=== PATIENT | female | born 1940 | race Caucasian/White ===

== ENCOUNTER 2017-11-05 13:29 | Inpatient (IN) | payer MEDICARE ==
[2017-11-05] VITALS (7 sets, daily range): BP systolic 104–156; BP diastolic 51–93; PULSE 77–128; RESP 17–19; TEMP 98.2–98.9; O2SAT 96–97
[~2017-11-05] VITALS: Ht 172.7 cm; Wt 100.3 kg
[~2017-11-05 13:29] MED LIST: ALBU.5I INH; ATEN1TAB74 PO; LEVO.15 PO; LORTA5 PO; METF-324 PO; TRAZ50TA4 PO; ZYRT10TA12 PO
[2017-11-05] MEDS ORDERED: SODIUM CHLOR 0.9% 1000 ML INJ 1,000 ML IV ONE ×2 (14:15→16:45)
--- NOTE | 2017-11-05 14:23 | PD ---
HPI Chief Complaint: Found on floor Time Seen by Provider: 14:08 Travel History International Travel<30 days: No Contact w/Intl Traveler<30days: No History of Present Illness HPI 77yo F brought in by [facility] after being found facedown on floor at home for unknown amount of time. Pt said she had not been feeling well but does not remember when she fell or why she fell. Pt has pressure ulcers on bilateral knee and skin break down in right chest and groin as well as right forehead after being face down for probably days. Said she had lower back pain prior to falling. Denies any fever, chest pain, n/v, abdominal pain, focal weakness or numbness. Feels a little sob. PFSH Past Medical History Arthritis: Yes Asthma: Yes Blood Disorders: No Cancer: No Cardiovascular Problems: Yes Diabetes: Yes Endocrine: Yes Genitourinary: No Hypertension: Yes Immune Disorder: No Musculoskeletal: Yes (RIGHT HIP TENDON TEAR) Neurologic: No Psychiatric: No Reproductive: No Respiratory: Yes Thyroid Disease: Yes Past Surgical History Abdominal Surgery: Yes (CHOLECYSTECTOMY) Cholecystectomy: Yes Gynecologic Surgery: Yes (ATIF) Joint Replacement: Yes (YUNG. KNEES) Oral Surgery: Yes (T & A) Social History Alcohol Use: Yes (OCCAS) Tobacco Use: No Substance Use: No Allergies-Medications (Allergen,Severity, Reaction): Coded Allergies: No Known Allergies (Verified Allergy, Unknown, 11/05/17) Reported Meds & Prescriptions Reported Meds & Active Scripts Active Reported Tizanidine (Tizanidine HCl) 4 Mg Tab 4 Mg PO TID Memantine 5 Mg Tab 5 Mg PO BID [place] Thyroid (Thyroid) 90 Mg Tab 90 Mg PO DAILY Trazodone (Trazodone HCl) 50 Mg Tab 50 Mg PO HS Atenolol 50 Mg Tab 50 Mg PO BID Rosuvastatin (Rosuvastatin Calcium) 10 Mg Tab 10 Mg PO HS Acetaminophen-Codeine 300-15 mg Tab 1 Tab PO Q6H PRN Review of Systems Except as stated in HPI: all other systems reviewed are Neg Physical Exam Narrative GENERAL: 77yo F in moderate distress. SKIN: +Erythema under right breast, right abdomen and groin. HEAD: Erythema in right forehead and maxilla. EYES: Pupils equal and round at 3mm bilaterally. ENT: No nasal bleeding or discharge. Mucous membranes pink and moist. NECK: Trachea midline. No JVD. CARDIOVASCULAR: Regular rate and rhythm. No murmur appreciated. RESPIRATORY: No accessory muscle use. Clear to auscultation. Breath sounds equal bilaterally. GASTROINTESTINAL: Abdomen soft, non-tender, nondistended. No rebound tenderness or guarding. MUSCULOSKELETAL: Bilateral knees: +ulcer left > right. Distal pulses intact. NEUROLOGICAL: Awake and alert. No obvious cranial nerve deficits. Decreased muscle strength in bilateral lower extremity. Sensation intact. Normal speech. PSYCHIATRIC: Appropriate mood and affect; insight and judgment normal. Data Data Last Documented VS Vital Signs Date Time Temp Pulse Resp B/P (MAP) Pulse Ox O2 Delivery O2 Flow Rate FiO2 11/05/17 16:58 125 17 156/78 (104) 97 Room Air 11/05/17 13:35 98.2 Orders Orders Electrocardiogram (11/05/17 ) Complete Blood Count With Diff (11/05/17 14:08) Comprehensive Metabolic Panel (11/05/17 14:08) Prothrombin Time / Inr (Pt) (11/05/17 14:08) Act Partial Throm Time (Ptt) (11/05/17 14:08) Creatine Kinase (Cpk) (11/05/17 14:08) Troponin I (11/05/17 14:08) Urinalysis - C+S If Indicated (11/05/17 14:08) Chest, Single Ap (11/05/17 ) Pelvis, Ap Only (Routine) (11/05/17 ) Ct Brain W/O Iv Contrast(Rout) (11/05/17 ) Ct Cerv Spine W/O Contrast (11/05/17 ) Ct Facial Bones W/O Iv Cont (11/05/17 ) Ct Lumb Spine W/O Contrast (11/05/17 ) Magnesium (Mg) (11/05/17 14:08) Lactic Acid Sepsis Protocol (11/05/17 14:08) Sodium Chlor 0.9% 1000 Ml Inj (Ns 1000 M (11/05/17 14:15) CKMB (11/05/17 14:15) CKMB% (11/05/17 14:15) Sodium Chlor 0.9% 1000 Ml Inj (Ns 1000 M (11/05/17 16:45) Diltiazem Inj (Cardizem Inj) (11/05/17 17:45) Admit Order (Ed Use Only) (11/05/17 17:39) Labs Laboratory Tests Test 11/05/17 14:15 11/05/17 17:00 White Blood Count 18.0 TH/MM3 Red Blood Count 5.00 MIL/MM3 Hemoglobin 15.0 GM/DL Hematocrit 45.0 % Mean Corpuscular Volume 89.9 FL Mean Corpuscular Hemoglobin 30.0 PG Mean Corpuscular Hemoglobin Concent 33.4 % Red Cell Distribution Width 13.8 % Platelet Count 321 TH/MM3 Mean Platelet Volume 8.3 FL Neutrophils (%) (Auto) 84.0 % Lymphocytes (%) (Auto) 4.9 % Monocytes (%) (Auto) 10.8 % Eosinophils (%) (Auto) 0.0 % Basophils (%) (Auto) 0.3 % Neutrophils # (Auto) 15.1 TH/MM3 Lymphocytes # (Auto) 0.9 TH/MM3 Monocytes # (Auto) 1.9 TH/MM3 Eosinophils # (Auto) 0.0 TH/MM3 Basophils # (Auto) 0.1 TH/MM3 CBC Comment DIFF FINAL Differential Comment Prothrombin Time 11.0 SEC Prothromb Time International Ratio 1.1 RATIO Activated Partial Thromboplast Time 24.1 SEC Blood Urea Nitrogen 21 MG/DL Creatinine 1.06 MG/DL Random Glucose 131 MG/DL Total Protein 7.0 GM/DL Albumin 3.3 GM/DL Calcium Level 8.6 MG/DL Magnesium Level 2.0 MG/DL Alkaline Phosphatase 117 U/L Aspartate Amino Transf (AST/SGOT) 35 U/L Alanine Aminotransferase (ALT/SGPT) 22 U/L Total Bilirubin 0.8 MG/DL Sodium Level 143 MEQ/L Potassium Level 4.4 MEQ/L Chloride Level 107 MEQ/L Carbon Dioxide Level 19.0 MEQ/L Anion Gap 17 MEQ/L Estimat Glomerular Filtration Rate 51 ML/MIN Lactic Acid Level 2.4 mmol/L 1.6 mmol/L Total Creatine Kinase 606 U/L Creatine Kinase MB 3.6 NG/ML Creatine Kinase MB % 0.6 % Troponin I 0.03 NG/ML [facility] Medical Decision Making Medical Screen Exam Complete: Yes Emergency Medical Condition: Yes Differential Diagnosis Failure to thrive vs. CPK vs. dehydration vs. electrolyte abnormality vs. UTI Narrative Course 77yo F was found facedown by friend for unknown amount of time. Pt initially tachycardic in the 120s and given NS IVF x2. EKG has poor baseline. Pt reevaluated at bedside and HR is now in the 130s. Looks irregular, ordered cardizem 20mg IV which did decrease HR to 80s. Labs reviewed, leukocytosis at 18. H/H normal. Lactic acid elevated at 2.4. CPK elevated at 606. CO2 low at 19. CT cspine negative. CXR negative. CT brain negative. CT LS negative. CT MF negative. Xray pelvis negative. Discussed with Dr. Verdugo and accepted to his service. Critical Care Narrative Aggregate critical care time was 40 minutes. Time to perform other separately billable procedures was not included in the critical care time. My time did not include minutes spent treating any other patients simultaneously or on activities that did not directly contribute to the patient's treatment. The services I provided to this patient were to treat and/or prevent clinically significant deterioration that could result in: cardiovascular collapse or . I provided critical care services requiring my management, as noted below: Chart data review, documentation time, medication orders and management, vital sign assessments/reviewing monitor data, ordering and reviewing lab tests, ordering and interpreting/reviewing x-rays and diagnostic studies, care of the patient and discussion of the patient with the admitting physicians. Diagnosis Primary Impression: Lactic acidosis Additional Impression: Rhabdomyolysis Qualified Codes: T79.6XXA - Traumatic ischemia of muscle, initial encounter Admitting Information Admitting Physician Requests: Aarti Almanzar DO Nov 05, 2017 14:23
[2017-11-05 14:31] LABS: AUTOMATED NEUTROPHIL # 15.1 TH/MM3 (1.8-7.7); BASOPHIL # 0.1 TH/MM3 (0-0.2); BASOPHIL % 0.3 % (0.0-2.0); HEMO FLAGS DIFF FINAL; LYMPH % 4.9 % (9.0-44.0); LYMPHOCYTE # 0.9 TH/MM3 (1.0-4.8); MEAN CELL VOLUME 89.9 FL (80.0-100.0); MEAN CORPUSCULAR HGB CONC 33.4 % (32.0-36.0); MONO % 10.8 % (0.0-8.0); PLATELET COUNT 321 TH/MM3 (150-450); RED CELL DISTRIBUTION WIDTH 13.8 % (11.6-17.2)
[2017-11-05 14:42] LABS: APTT (PATIENT) 24.1 SEC (24.3-30.1); INTERNATIONAL NORMALIZED RATIO 1.1 RATIO
[2017-11-05 14:45] LABS: ALT (GPT) 22 U/L (10-53); ANION GAP 17 MEQ/L (5-15); AST (GOT) 35 U/L (15-37); BLOOD UREA NITROGEN 21 MG/DL (7-18); CHLORIDE 107 MEQ/L (98-107); GLOMERULAR FILTRATION RATE 51 ML/MIN (>89); POTASSIUM 4.4 MEQ/L (3.5-5.1); SODIUM (NA) 143 MEQ/L (136-145)
[2017-11-05 14:48] LABS: ALKALINE PHOSPHATASE 117 U/L (45-117); CREATINE KINASE 606 U/L (26-192); TOTAL BILIRUBIN ADULT 0.8 MG/DL (0.2-1.0)
--- NOTE | 2017-11-05 14:48 | RADRPT ---
EXAM DATE/TIME: 11/05/2017 14:34 [facility] COMPARISON: No previous studies available for comparison. INDICATIONS : Short of breath. MEDICAL HISTORY : None. SURGICAL HISTORY : None. ENCOUNTER: Initial ACUITY: 1 day PAIN SCORE: 10 LOCATION: Bilateral chest FINDINGS: A single view of the chest demonstrates the lungs to be symmetrically aerated without evidence of mas s, infiltrate or effusion. The cardiomediastinal contours are unremarkable. Osseous structures are intact. CONCLUSION: No acute disease. Jonas Sterling MD on November 05, 2017 at 14:45 Board Certified Radiologist. This report was verified electronically.
--- NOTE | 2017-11-05 14:49 | RADRPT ---
EXAM DATE/TIME: 11/05/2017 14:36 [facility] COMPARISON: No previous studies available for comparison. INDICATIONS : Right posterior hip pain. MEDICAL HISTORY : None. SURGICAL HISTORY : None. ENCOUNTER: Initial ACUITY: 1 day PAIN SCORE: 5/10 LOCATION: Right posterior hip FINDINGS: A single frontal view of the pelvis demonstrates no evidence of fracture. The bony pelvic ring is in tact. Bony mineralization is normal. The soft tissues are intact. CONCLUSION: No acute fracture. Jonas Sterling MD on November 05, 2017 at 14:47 Board Certified Radiologist. This report was verified electronically.
[2017-11-05 15:00] LABS: CKMB 3.6 NG/ML (0.5-3.6)
--- NOTE | 2017-11-05 15:13 | RADRPT ---
EXAM DATE/TIME: 11/05/2017 14:34 [facility] COMPARISON: No previous studies available for comparison. INDICATIONS : Trauam, patient fell and hit head today. Head, neck and lumbar pain. RADIATION DOSE: 56.35 CTDIvol (mGy) MEDICAL HISTORY : Hypertension. Diabetes mellitus type 1. SURGICAL HISTORY : Cholecystectomy. ENCOUNTER: Initial ACUITY: 1 day PAIN SCALE: 10/10 LOCATION: cranial TECHNIQUE: Multiple contiguous axial images were obtained of the head. Using automated exposure control and adj ustment of the mA and/or kV according to patient size, radiation dose was kept as low as reasonably a chievable to obtain optimal diagnostic quality images. DICOM format image data is available electro nically for review and comparison. FINDINGS: CEREBRUM: There is low attenuation throughout the white matter. Cerebral atrophy The ventricles are normal for age. No evidence of midline shift, mass lesion, hemorrhage or acute infarction. No extra-axial flui d collections are seen. POSTERIOR FOSSA: The cerebellum and brainstem are intact. The 4th ventricle is midline. The cerebellopontine angle i s unremarkable. EXTRACRANIAL: The visualized portion of the orbits is intact. SKULL: The calvaria is intact. No evidence of skull fracture. CONCLUSION: 1. Cerebral atrophy and chronic ischemic small vessel arthropathy. 2. No acute intracranial abnormality. Jonas Sterling MD on November 05, 2017 at 15:10 Board Certified Radiologist. This report was verified electronically.
--- NOTE | 2017-11-05 15:14 | RADRPT ---
EXAM DATE/TIME: 11/05/2017 14:40 [facility] COMPARISON: No previous studies available for comparison. INDICATIONS : Trauam, patient fell and hit head today. Head, neck and lumbar pain. RADIATION DOSE: 25.06 CTDIvol (mGy) MEDICAL HISTORY : Hypertension. Diabetes mellitus type 1. SURGICAL HISTORY : Cholecystectomy. ENCOUNTER: Initial ACUITY: 1 day PAIN SCALE: 10/10 LOCATION: cervical spine TECHNIQUE: Volumetric scanning of the cervical spine was performed. Multiplanar reconstructions in the sagittal, coronal and oblique axial planes were performed. Using automated exposure control and adjustment o f the mA and/or kV according to patient size, radiation dose was kept as low as reasonably achievable to obtain optimal diagnostic quality images. DICOM format image data is available electronically f or review and comparison. FINDINGS: VERTEBRAE: Normal vertebral body height. ALIGNMENT: No evidence of subluxation. C2-C3: The bony spinal canal is normal in size. No evidence of disc bulge or herniation. The neural forami na are bilaterally patent. C3-C4: The bony spinal canal is normal in size. No evidence of disc bulge or herniation. The neural forami na are bilaterally patent. C4-C5: The bony spinal canal is normal in size. No evidence of disc bulge or herniation. The neural forami na are bilaterally patent. C5-C6: The bony spinal canal is normal in size. No evidence of disc bulge or herniation. The neural forami na are bilaterally patent. C6-C7: The bony spinal canal is normal in size. No evidence of disc bulge or herniation. The neural forami na are bilaterally patent. C7-T1: The bony spinal canal is normal in size. No evidence of disc bulge or herniation. The neural forami na are bilaterally patent. CONCLUSION: No fracture or subluxation. Jonas Sterling MD on November 05, 2017 at 15:12 Board Certified Radiologist. This report was verified electronically.
[2017-11-05] MEDS ORDERED: ARMO90TA PO (15:41)
[2017-11-05] MEDS ORDERED: TRAZ50TA12 PO (15:41)
[2017-11-05] MEDS ORDERED: ATEN50TA PO (15:41)
[2017-11-05] MEDS ORDERED: TIZA4TAB PO (15:41)
[2017-11-05] MEDS ORDERED: ACET300T49 PO (15:41)
[2017-11-05] MEDS ORDERED: MEMA1TAB PO (15:41)
[2017-11-05] MEDS ORDERED: ROSU1TAB6 PO (15:41)
--- NOTE | 2017-11-05 15:45 | RADRPT ---
EXAM DATE/TIME: 11/05/2017 14:44 [facility] COMPARISON: No previous studies available for comparison. INDICATIONS : Trauam, patient fell and hit head today. Head, neck and lumbar pain. RADIATION DOSE: 43.46 CTDIvol (mGy) MEDICAL HISTORY : Diabetes mellitus type 1. Hypertension. SURGICAL HISTORY : Cholecystectomy. ENCOUNTER: Initial ACUITY: 1 day PAIN SCALE: 10/10 LOCATION: lumbar spine TECHNIQUE: Volumetric scanning of the lumbar spine was performed. Multiplanar reconstructions in the sagittal, coronal and oblique axial planes were performed. Using automated exposure control and adjustment of the mA and/or kV according to patient size, radiation dose was kept as low as reasonably achievable t o obtain optimal diagnostic quality images. DICOM format image data is available electronically for review and comparison. FINDINGS: VERTEBRAE: Normal vertebral body height. No fracture. Multilevel degenerative changes including L2-3, L3-4, L4-5 and L5-S1 levels. ALIGNMENT: No evidence of subluxation. Scoliosis. T12-L1: The thecal sac has a normal diameter. No evidence of disc bulge or protrusion. The neural foramina are patent bilaterally. L1-L2: The thecal sac has a normal diameter. No evidence of disc bulge or protrusion. The neural foramina are patent bilaterally. L2-L3: The thecal sac has a normal diameter. No evidence of disc bulge or protrusion. The neural foramina are patent bilaterally. L3-L4: Mild broad-based disc bulge abuts ventral thecal sac without canal stenosis. The neural foramina are patent bilaterally. L4-L5: Mild broad-based disc bulge abuts ventral thecal sac without canal stenosis.The neural foramina are p atent bilaterally. L5-S1: Mild broad-based disc bulge abuts ventral thecal sac without canal stenosis. The neural foramina are patent bilaterally. CONCLUSION: 1. No fracture or subluxation. 2. Scoliosis and degenerative changes. Jonas Sterling MD on November 05, 2017 at 15:41 Board Certified Radiologist. This report was verified electronically.
--- NOTE | 2017-11-05 16:16 | RADRPT ---
EXAM DATE/TIME: 11/05/2017 14:41 [facility] COMPARISON: No previous studies available for comparison. INDICATIONS : Trauam, patient fell and hit head today. Head, neck and lumbar pain. RADIATION DOSE: 26.35 CTDIvol (mGy) MEDICAL HISTORY : Hypertension. Diabetes mellitus type 1. SURGICAL HISTORY : Cholecystectomy. ENCOUNTER: Initial ACUITY: 1 day PAIN SCORE: 10/10 LOCATION: facial bones TECHNIQUE: Volumetric scanning of the facial bones was performed. Using automated exposure control and adjustme nt of the mA and/or kV according to patient size, radiation dose was kept as low as reasonably achiev able to obtain optimal diagnostic quality images. DICOM format image data is available electronicall y for review and comparison. FINDINGS: ORBITS: The orbital and infraorbital osseous structures are intact. The retroconal structures have a normal configuration. No radiopaque foreign bodies are seen. NASAL BONE: The nasal bone and maxillary spine are intact ZYGOMATIC ARCHES: Symmetric without evidence of fracture. SINUSES: The maxillary, ethmoid and frontal sinuses are intact. No air-fluid levels seen. NASAL CAVITY: The nasal septum is intact and midline. The lacrimal ducts are intact. SOFT TISSUES: No radiopaque foreign bodies seen. No soft-tissue swelling is seen. INTRACRANIAL: No intracranial air seen. CRIBIFORM PLATE: Grossly intact. CONCLUSION: No acute disease. Tyrell Suazo MD on November 05, 2017 at 16:12 Board Certified Radiologist. This report was verified electronically.
[2017-11-05 16:26] LABS: LACTIC ACID GHOST NOT REPORTABLE
[2017-11-05] MEDS ORDERED: DILTIAZEM HCL 25 MG/5 ML VIAL IV ONE (17:45)
[2017-11-05] MEDS ORDERED: ACETAMINOPHEN/HYDROcodone 325 MG/5 MG TAB PO PRN (18:00)
[2017-11-05] MEDS ORDERED: MAGNESIUM HYDROXIDE SUSP 30 ML CUP PO PRN (18:00)
[2017-11-05] MEDS ORDERED: ONDANSETRON HCL 4 MG/2 ML VIAL IVP PRN (18:00)
[2017-11-05] MEDS ORDERED: SODIUM CHLORIDE 0.9% FLUSH 10 ML FLUSH IV FLUSH PRN (18:00)
[2017-11-05] MEDS ORDERED: NALOXONE HCL 0.4 MG/ML AMP IV PUSH PRN (18:00)
--- NOTE | 2017-11-05 18:11 | HHI.HP ---
[facility] Service [facility] Primary Care Physician No Primary Care Physician Admission Diagnosis Failure to thrive, fall Diagnoses: Travel History International Travel<30 Days: No Contact w/Intl Traveler <30 Da: No Traveled to Known Affected Are: No History of Present Illness Mrs. Harry is a 77-year-old female. She has Alzheimer's at baseline and history is not 100% clear because of this. She was found on the floor in the bathroom by her friend. It appears she had been having diarrhea at some point and fell and was unable to get up. She's been in this position for approximately 3-5 days. On workup in the ER no fractures are found. She does report severe right hip pain and has a bad hip there to begin with but no fracture is seen. Rhabdomyolysis is present. She also has lactic acidosis. She has bilateral knee wounds/ulcers. Pain is controlled when seen. Dehydration is present. No other complaints at this time. Presently she is feeling much weaker than baseline and does not feel she can walk at this time. Review of Systems Constitutional: DENIES: Fatigue, Chills, Change in appetite Eyes: DENIES: Blurred vision, Diplopia, Eye inflammation, Eye pain Respiratory: DENIES: Apneas, Cough, Snoring, Wheezing, Shortness of breath Cardiovascular: DENIES: Chest pain, Palpitations, Syncope Gastrointestinal: COMPLAINS OF: Diarrhea, DENIES: Abdominal pain, Black stools , Bloody stools Musculoskeletal: COMPLAINS OF: Joint pain, Muscle aches, Stiffness, DENIES: Joint Swelling Integumentary: DENIES: Abnormal pigmentation, Pruritus, Rash, Nail changes Hematologic/lymphatic: COMPLAINS OF: Bruising, DENIES: Lymphadenopathy Immunologic/allergic: DENIES: Eczema, Urticaria Neurologic: DENIES: Abnormal gait, Headache, Paresthesias Psychiatric: COMPLAINS OF: Confusion, DENIES: Anxiety, Hallucinations Past Family Social History Past Medical History Alzheimer's dementia Osteoarthritis Asthma Diabetes mellitus type 2 Hypertension Hypothyroidism Past Surgical History Cholecystectomy Tonsillectomy Hysterectomy Bilateral knee replacement surgeries Reported Medications Reported Meds & Active Scripts Active Reported Tizanidine (Tizanidine HCl) 4 Mg Tab 4 Mg PO TID Memantine 5 Mg Tab 5 Mg PO BID Fausto Thyroid (Thyroid) 90 Mg Tab 90 Mg PO DAILY Trazodone (Trazodone HCl) 50 Mg Tab 50 Mg PO HS Atenolol 50 Mg Tab 50 Mg PO BID Rosuvastatin (Rosuvastatin Calcium) 10 Mg Tab 10 Mg PO HS Acetaminophen-Codeine 300-15 mg Tab 1 Tab PO Q6H PRN Allergies: Coded Allergies: No Known Allergies (Verified , 08/18/15) Family History Myocardial infarction in father Liver cancer in mother Social History No history of smoking No history of illicit drug abuse Occasional alcohol use Physical Exam Vital Signs Vital Signs Date Time Temp Pulse Resp B/P (MAP) Pulse Ox O2 Delivery O2 Flow Rate FiO2 11/05/17 16:58 125 17 156/78 (104) 97 Room Air 11/05/17 16:00 118 17 145/74 (97) 97 Room Air 11/05/17 13:35 98.2 128 17 132/93 (106) 97 11/05/17 13:35 128 17 97 Room Air Physical Exam GENERAL: NAD, A&Ox3 HEAD: Normocephalic. NECK: Supple, trachea midline. No lymphadenopathy. EYES: No scleral icterus. No injection or drainage. CARDIOVASCULAR: Regular rate and rhythm without murmurs, gallops, or rubs. RESPIRATORY: Breath sounds equal bilaterally. No accessory muscle use. GASTROINTESTINAL: Abdomen soft, non-tender, nondistended. MUSCULOSKELETAL: No cyanosis, or edema. Tenderness with any range of motion of right leg referred to right hip. SKIN: Warm and dry. Bilateral knee ulcerations with bruising and discoloration. Left side is approximately 2-3 cm and right-sided is 1-2 cm. NEURO: No focal neurological deficitis. Laboratory Laboratory Tests Test 11/05/17 14:15 11/05/17 17:00 White Blood Count 18.0 Red Blood Count 5.00 Hemoglobin 15.0 Hematocrit 45.0 Mean Corpuscular Volume 89.9 Mean Corpuscular Hemoglobin 30.0 Mean Corpuscular Hemoglobin Concent 33.4 Red Cell Distribution Width 13.8 Platelet Count 321 Mean Platelet Volume 8.3 Neutrophils (%) (Auto) 84.0 Lymphocytes (%) (Auto) 4.9 Monocytes (%) (Auto) 10.8 Eosinophils (%) (Auto) 0.0 Basophils (%) (Auto) 0.3 Neutrophils # (Auto) 15.1 Lymphocytes # (Auto) 0.9 Monocytes # (Auto) 1.9 Eosinophils # (Auto) 0.0 Basophils # (Auto) 0.1 CBC Comment DIFF FINAL Differential Comment Prothrombin Time 11.0 Prothromb Time International Ratio 1.1 Activated Partial Thromboplast Time 24.1 Blood Urea Nitrogen 21 Creatinine 1.06 Random Glucose 131 Total Protein 7.0 Albumin 3.3 Calcium Level 8.6 Magnesium Level 2.0 Alkaline Phosphatase 117 Aspartate Amino Transf (AST/SGOT) 35 Alanine Aminotransferase (ALT/SGPT) 22 Total Bilirubin 0.8 Sodium Level 143 Potassium Level 4.4 Chloride Level 107 Carbon Dioxide Level 19.0 Anion Gap 17 Estimat Glomerular Filtration Rate 51 Lactic Acid Level 2.4 1.6 Total Creatine Kinase 606 Creatine Kinase MB 3.6 Creatine Kinase MB % 0.6 Troponin I 0.03 Result Diagram: 11/05/17 1415 11/05/17 1415 Caprini VTE Risk Assessment Caprini VTE Risk Assessment: Mod/High Risk (score >= 2) Caprini Risk Assessment Model Point Value = 1 Point Value = 2 Point Value = 3 Point Value = 5 Age 41-60 Minor surgery BMI > 25 kg/m2 Swollen legs Varicose veins or History of unexplained or recurrent spontaneous Oral contraceptives or hormone replacement Sepsis (< 1 month) Serious lung disease, including pneumonia (< 1 month) Abnormal pulmonary function Acute myocardial infarction Congestive heart failure (< 1 month) History of inflammatory bowel disease Medical patient at bed rest Age 61-74 Arthroscopic surgery Major open surgery (> 45 min) Laparoscopic surgery (> 45 min) Malignancy Confined to bed (> 72 hours) Immobilizing plaster cast Central venous access Age >= 75 History of VTE Family history of VTE Factor V Leiden Prothrombin [id number] Lupus anticoagulant Anticardiolipin antibodies Elevated serum homocysteine Heparin-induced thrombocytopenia Other congenital or acquired thrombophilia Stroke (< 1 month) Elective arthroplasty Hip, pelvis, or leg fracture Acute spinal cord injury (< 1 month) Prophylaxis Regimen Total Risk Factor Score Risk Level Prophylaxis Regimen 0-1 Low Early ambulation 2 Moderate Order ONE of the following: *Sequential Compression Device (SCD) *Heparin 5000 units SQ BID 3-4 Higher Order ONE of the following medications: *Heparin 5000 units SQ TID *Enoxaparin/Lovenox 40 mg SQ daily (WT < 150 kg, CrCl > 30 mL/min) *Enoxaparin/Lovenox 30 mg SQ daily (WT < 150 kg, CrCl > 10-29 mL/min) *Enoxaparin/Lovenox 30 mg SQ BID (WT < 150 kg, CrCl > 30 mL/min) AND/OR *Sequential Compression Device (SCD) 5 or more Highest Order ONE of the following medications: *Heparin 5000 units SQ TID (Preferred with Epidurals) *Enoxaparin/Lovenox 40 mg SQ daily (WT < 150 kg, CrCl > 30 mL/min) *Enoxaparin/Lovenox 30 mg SQ daily (WT < 150 kg, CrCl > 10-29 mL/min) *Enoxaparin/Lovenox 30 mg SQ BID (WT < 150 kg, CrCl > 30 mL/min) AND *Sequential Compression Device (SCD) Assessment and Plan Problem List: (1) Rhabdomyolysis ICD Code: M62.82 - Rhabdomyolysis (2) Dehydration ICD Code: E86.0 - Dehydration (3) Lactic acidosis ICD Code: E87.2 - Acidosis (4) Leukocytosis ICD Code: D72.829 - Elevated white blood cell count, unspecified Assessment and Plan Assessment and plan 77-year-old female admitted secondary to rhabdomyolysis with dehydration and weakness Rhabdomyolysis Dehydration Lactic acidosis Secondary to fall and prolonged time down on the floor IV hydration Follow CPK Monitor renal function Tachycardia May be partly related to dehydration May be from missed beta lan treatments Diltiazem provided the ER Follow on telemetry Rehydrate the patient Gen. weakness Fall Start physical therapy I anticipate this patient will need fci facility at discharge Alzheimer's dementia Continue baseline therapy Follow clinically Supportive care Bilateral knee ulcerations Open hematomas versus pressure ulcers Wound care nurse consulted Follow clinically History of asthma No exacerbation Follow clinically for now History of diabetes mellitus type 2 She is presently not on any treatment May be diet controlled Follow blood sugars for now Insulin sliding scale Hypertension Continue atenolol Hypothyroidism Continue thyroid supplement DVT prophylaxis Given recent trauma will provide SCDs for now Anticoagulation could be considered if patient remains clinically stable for 24- 48 hours Physician Certification 2 Midnight Certification Type: Admission for Inpatient Services Order for Inpatient Services The services are ordered in accordance with Medicare regulations or non- Medicare payer requirements, as applicable. In the case of services not specified as inpatient-only, they are appropriately provided as inpatient services in accordance with the 2-midnight benchmark. Estimated LOS (days): 4 days is the estimated time the patient will need to remain in the hospital, assuming treatment plan goals are met and no additional complications. Post-Hospital Plan: SNF Slim Verdugo MD Nov 05, 2017 18:11
[2017-11-05] MEDS: SODIUM CHLOR 0.9% 1000 ML INJ 1,000 ML IV SCH (18:31)
[2017-11-05] MEDS ORDERED: DEXTROSE 50% IN WATER 50 ML VIAL(D50) IV PUSH PRN (18:45)
[2017-11-05] MEDS ORDERED: GLUCAGON 1 MG/ML VIAL OTHER PRN (18:45)
[2017-11-05] MEDS: ACETAMINOPHEN/HYDROcodone 325 MG/7.5 MG TAB PO PRN (19:07)
[2017-11-05] MEDS: traZODone HCL 50 MG TAB PO SCH (20:21)
[2017-11-05] MEDS: ATENOLOL 50 MG TAB PO SCH (20:21)
[2017-11-05] MEDS: MEMANTINE HCL 5 MG TAB PO SCH (20:21)
[2017-11-05] MEDS: SODIUM CHLORIDE 0.9% FLUSH 10 ML FLUSH IV FLUSH SCH (20:23)
[2017-11-05 22:41] LABS: CKMB 4.4 NG/ML (0.5-3.6)
[2017-11-06 03:39] VITALS: BP 129/66; PULSE 65; RESP 19; TEMP 98.6; O2SAT 95
[2017-11-06] MEDS: SODIUM CHLOR 0.9% 1000 ML INJ 1,000 ML IV SCH ×3 (04:00→21:31)
[2017-11-06] MEDS: THYROID 30 MG TAB PO SCH ×2 (05:19→09:07)
[2017-11-06 05:58] LABS: AUTOMATED NEUTROPHIL # 7.4 TH/MM3 (1.8-7.7); BASOPHIL # 0.1 TH/MM3 (0-0.2); BASOPHIL % 0.5 % (0.0-2.0); EOSINOPHIL % 0.3 % (0.0-4.0); HEMATOCRIT 36.4 % (35.0-46.0); HEMO FLAGS DIFF FINAL; LYMPH % 13.7 % (9.0-44.0); LYMPHOCYTE # 1.4 TH/MM3 (1.0-4.8); MEAN CELL VOLUME 88.9 FL (80.0-100.0); MEAN CORPUSCULAR HEMOGLOBIN 30.6 PG (27.0-34.0); MEAN CORPUSCULAR HGB CONC 34.4 % (32.0-36.0); MONO % 11.8 % (0.0-8.0); NEUT % 73.7 % (16.0-70.0); PLATELET COUNT 233 TH/MM3 (150-450); RED BLOOD COUNT 4.09 MIL/MM3 (4.00-5.30); RED CELL DISTRIBUTION WIDTH 13.6 % (11.6-17.2)
[2017-11-06 06:46] LABS: CKMB 3.2 NG/ML (0.5-3.6)
[2017-11-06 08:00] VITALS: BP 103/50; PULSE 76; RESP 19; TEMP 98.9; O2SAT 95
[2017-11-06] MEDS: ATENOLOL 50 MG TAB PO SCH ×2 (09:00→20:13)
[2017-11-06] MEDS: SODIUM CHLORIDE 0.9% FLUSH 10 ML FLUSH IV FLUSH SCH ×2 (09:00→20:13)
[2017-11-06] MEDS: MEMANTINE HCL 5 MG TAB PO SCH ×2 (09:07→20:13)
[2017-11-06] MEDS: ACETAMINOPHEN/HYDROcodone 325 MG/7.5 MG TAB PO PRN (09:11)
[2017-11-06 12:00] VITALS: BP 97/55; PULSE 76; RESP 19; TEMP 98.4; O2SAT 94
--- NOTE | 2017-11-06 13:36 | EKG ---
Date Performed: 11/05/2017 Time Performed: 14:12:27 PTAGE: 77 years EKG: Atrial fibrillation with increased ventricular rate PVCs Left axis deviation Poor R-wave pr ogression with a possible old anteroseptal infarct ABNORMAL ECG Compared to PREVIOUS TRACING , there has been a change in rhythm. PREVIOUS TRACIN05/04/2008 13.52 DOCTOR: Aleksandr Duque Interpretating Date/Time 11/06/2017 13:27:49
--- NOTE | 2017-11-06 14:07 | HHI.PR ---
Subjective Remarks Patient has worsening confusion overnight. Additionally she has a worsening in her creatinine kinase due to rhabdomyolysis, IV hydration is ongoing. No other complaints. She is out of bed in chair today. Objective Vital Signs Date Time Temp Pulse Resp B/P (MAP) Pulse Ox O2 Delivery O2 Flow Rate FiO2 11/06/17 08:00 98.9 76 19 103/50 (67) 95 11/06/17 03:39 98.6 65 19 129/66 (87) 95 11/05/17 23:42 98.9 77 19 104/57 (73) 96 11/05/17 21:54 85 11/05/17 19:32 98.3 86 18 111/51 (71) 97 11/05/17 18:15 116 17 129/59 (82) 97 Room Air 11/05/17 16:58 125 17 156/78 (104) 97 Room Air 11/05/17 16:00 118 17 145/74 (97) 97 Room Air I/O 11/05/17 11/05/17 11/05/17 11/06/17 11/06/17 11/06/17 07:00 15:00 23:00 07:00 15:00 23:00 Intake Total 1000 ml 480 ml Balance 1000 ml 480 ml Intake Oral 480 ml IV Total 1000 ml # Voids 3 # Bowel Movements 0 Result Diagram: 11/06/17 0500 11/05/17 1415 Objective Remarks GENERAL: NAD, A&Ox1 HEAD: Normocephalic. NECK: Supple, trachea midline. No lymphadenopathy. EYES: No scleral icterus. No injection or drainage. CARDIOVASCULAR: Regular rate and rhythm without murmurs, gallops, or rubs. RESPIRATORY: Breath sounds equal bilaterally. No accessory muscle use. GASTROINTESTINAL: Abdomen soft, non-tender, nondistended. MUSCULOSKELETAL: No cyanosis, or edema. SKIN: Warm and dry. NEURO: No focal neurological deficitis. A/P Problem List: (1) Rhabdomyolysis ICD Code: M62.82 - Rhabdomyolysis (2) Leukocytosis ICD Code: D72.829 - Elevated white blood cell count, unspecified (3) Lactic acidosis ICD Code: E87.2 - Acidosis (4) Dehydration ICD Code: E86.0 - Dehydration Assessment and Plan Assessment and plan 77-year-old female admitted secondary to rhabdomyolysis with dehydration and weakness. Increased confusion today, related to Alzheimer's disease. Worsen rhabdomyolysis. Continue IV hydration and monitor CK until improved. Not stable for discharge at this point. Rhabdomyolysis Dehydration Lactic acidosis Rhabdomyolysis has worsened Continuation of IV hydration is necessary Follow CPK Monitor renal function Tachycardia Improved May be partly related to dehydration May be from missed beta lan treatments Diltiazem provided the ER Follow on telemetry Rehydrate the patient Gen. weakness Fall Continue physical therapy I anticipate this patient will need penitentiary facility at discharge Alzheimer's dementia Exacerbated Decrease narcotics Continue baseline therapy Follow clinically Supportive care Bilateral knee ulcerations Open hematomas versus pressure ulcers Wound care nurse consulted Follow clinically History of asthma No exacerbation Follow clinically for now History of diabetes mellitus type 2 May be diet controlled Follow blood sugars for now Insulin sliding scale Hypertension Continue atenolol Hypothyroidism Continue thyroid supplement DVT prophylaxis Lovenox started Slim Verdugo MD Nov 06, 2017 14:07
--- NOTE | 2017-11-06 15:30 | PD.WCN.NOT ---
Wound Consult Description: Received consult from Doctor Verdugo for bilateral knee wounds that are open from Doctor Slim Verdugo Communicated with: DUNIA Thomas, Doctor Brand and Doctor Slim Verdugo Recommendation: Refer to Doctor Brand orders Keep bilateral knees free of pressure. Please leave absorbent transparent dressing in place for 7 days on L elbow Additional Information: Patient seen on 6 for evaluation of bilateral knee wounds, hematomas vs pressure ulcers.Patient is laying in bed during assessment. Removed dressings in place reveal wounds.R knee wound presents with ~100% yellow adherent slough. Periwound presents with blanchable erythema.Wound measures 2.1cm x 2 cm x slough. Slight induration is also noted to periwound from 3 to 9 o'clock. Wound drainage is minimal and salazar/ sanguinous with mild odor.Both wounds appears to be pressure and friction related and are unstageable L knee wound presents with 90% yellow adherent slough and ~10% black eschar. Periwound presents with erythema and slight induration from 3 to 10 o'clock. Wound drainage is minimal and salazar/ sanguinous with mild odor. L elbow presents with skin tear that is dry and presents with 100% red clean tissue. Wound has no active drainage. Cleansed wound with normal saline and applied transparent absorbent dressing. Per H &P patient fell and was down 3 to [address] days. Doctor Brand assessed wounds with jingle writer. Patient needs out patient wound care follow up. Doctor Brand wrote orders for santyl and dry cover dressing to bilateral knees to be done daily and follow up with wound care out patient. Gloria Hancock [facility] Nov 06, 2017 15:30
[2017-11-06] MEDS: ENOXAPARIN SODIUM 40 MG/0.4 ML SYRINGE SQ SCH (16:53)
[2017-11-06 18:23] VITALS: PULSE 50
[2017-11-06] MEDS: COLLAGENASE OINT 30 GM TUBE TOPICAL SCH (18:40)
[2017-11-06] MEDS: SODIUM CHLORIDE 0.9% IRR BTL 1,000 ML IRRIGATION SCH (18:40)
[2017-11-06 20:09] VITALS: BP 112/55; PULSE 62; RESP 18; TEMP 95.9; O2SAT 96
[2017-11-06] MEDS: traMADol HCL 50 MG TAB PO PRN (20:13)
[2017-11-06] MEDS: traZODone HCL 50 MG TAB PO SCH (20:13)
[2017-11-06 23:00] VITALS: BP 110/54; PULSE 60; RESP 18; TEMP 97.1; O2SAT 94
[2017-11-07] MEDS: THYROID 30 MG TAB PO SCH (04:27)
[2017-11-07 04:28] VITALS: BP 125/68; PULSE 52; RESP 18; TEMP 97.9; O2SAT 93
[2017-11-07] MEDS: ATENOLOL 50 MG TAB PO SCH ×2 (07:41→20:10)
[2017-11-07] MEDS: SODIUM CHLORIDE 0.9% FLUSH 10 ML FLUSH IV FLUSH SCH ×2 (07:41→20:08)
[2017-11-07] MEDS: MEMANTINE HCL 5 MG TAB PO SCH ×2 (07:41→20:08)
[2017-11-07] MEDS: COLLAGENASE OINT 30 GM TUBE TOPICAL SCH (07:41)
[2017-11-07] MEDS: SODIUM CHLORIDE 0.9% IRR BTL 1,000 ML IRRIGATION SCH (07:43)
[2017-11-07 08:00] VITALS: BP 101/44; PULSE 61; RESP 18; TEMP 97.4; O2SAT 93
[2017-11-07 09:35] LABS: AUTOMATED NEUTROPHIL # 5.1 TH/MM3 (1.8-7.7); BASOPHIL % 0.6 % (0.0-2.0); EOSINOPHIL # 0.1 TH/MM3 (0-0.4); EOSINOPHIL % 1.7 % (0.0-4.0); HEMATOCRIT 38.6 % (35.0-46.0); HEMO FLAGS DIFF FINAL; LYMPH % 18.4 % (9.0-44.0); LYMPHOCYTE # 1.3 TH/MM3 (1.0-4.8); MEAN CELL VOLUME 89.6 FL (80.0-100.0); MEAN CORPUSCULAR HEMOGLOBIN 30.3 PG (27.0-34.0); MEAN CORPUSCULAR HGB CONC 33.8 % (32.0-36.0); MONO % 8.7 % (0.0-8.0); NEUT % 70.6 % (16.0-70.0); PLATELET COUNT 219 TH/MM3 (150-450); RED BLOOD COUNT 4.31 MIL/MM3 (4.00-5.30); RED CELL DISTRIBUTION WIDTH 13.8 % (11.6-17.2); WHITE BLOOD COUNT 7.2 TH/MM3 (4.0-11.0)
[2017-11-07] MEDS: SODIUM CHLOR 0.9% 1000 ML INJ 1,000 ML IV SCH ×2 (10:00→20:08)
[2017-11-07 10:39] LABS: ALKALINE PHOSPHATASE 88 U/L (45-117); ALT (GPT) 21 U/L (10-53); ANION GAP 8 MEQ/L (5-15); AST (GOT) 66 U/L (15-37); BLOOD UREA NITROGEN 17 MG/DL (7-18); CHLORIDE 108 MEQ/L (98-107); CREATINE KINASE 1474 U/L (26-192); GLOMERULAR FILTRATION RATE 72 ML/MIN (>89); POTASSIUM 3.5 MEQ/L (3.5-5.1); SODIUM (NA) 140 MEQ/L (136-145); TOTAL BILIRUBIN ADULT 0.4 MG/DL (0.2-1.0)
[2017-11-07 11:11] LABS: CKMB 6.2 NG/ML (0.5-3.6)
[2017-11-07 12:00] VITALS: BP 103/48; PULSE 65; RESP 18; TEMP 97.5; O2SAT 95
--- NOTE | 2017-11-07 14:11 | HHI.PR ---
Subjective Remarks Rhabdomyolysis is worsening. This appears to be an evolution of previous injuries which are likely manifesting as patient is rehydrated. No renal compromise thus far but she does need continued IV hydration until the rhabdomyolysis improves. Objective Vital Signs Date Time Temp Pulse Resp B/P (MAP) Pulse Ox O2 Delivery O2 Flow Rate FiO2 11/07/17 12:00 97.5 65 18 103/48 (66) 95 11/07/17 08:00 97.4 61 18 101/44 (63) 93 11/07/17 04:28 97.9 52 18 125/68 (87) 93 11/06/17 23:00 97.1 60 18 110/54 (72) 94 11/06/17 20:09 95.9 62 18 112/55 (74) 96 11/06/17 18:23 50 I/O 11/06/17 11/06/17 11/06/17 11/07/17 11/07/17 11/07/17 07:00 15:00 23:00 07:00 15:00 23:00 Intake Total 480 ml 400 ml 480 ml 360 ml Balance 480 ml 400 ml 480 ml 360 ml Intake Oral 480 ml 400 ml 480 ml 360 ml # Voids 3 2 3 2 # Bowel Movements 0 0 0 Result Diagram: 11/07/1772911/07/17729 Objective Remarks GENERAL: NAD, A&Ox1 HEAD: Normocephalic. NECK: Supple, trachea midline. No lymphadenopathy. EYES: No scleral icterus. No injection or drainage. CARDIOVASCULAR: Regular rate and rhythm without murmurs, gallops, or rubs. RESPIRATORY: Breath sounds equal bilaterally. No accessory muscle use. GASTROINTESTINAL: Abdomen soft, non-tender, nondistended. MUSCULOSKELETAL: No cyanosis, or edema. SKIN: Warm and dry. NEURO: No focal neurological deficitis. A/P Problem List: (1) Rhabdomyolysis ICD Code: M62.82 - Rhabdomyolysis (2) Leukocytosis ICD Code: D72.829 - Elevated white blood cell count, unspecified (3) Lactic acidosis ICD Code: E87.2 - Acidosis (4) Dehydration ICD Code: E86.0 - Dehydration Assessment and Plan Assessment and plan 77-year-old female admitted secondary to rhabdomyolysis with dehydration and weakness. Increased confusion today, related to Alzheimer's disease. Worsen rhabdomyolysis. Continue IV hydration and monitor CK until improved. Not stable for discharge at this point. She'll be stable for discharge from rhabdomyolysis improving and she is able to be weaned off of IV fluids. Planning for discharge to fdc facility versus inpatient rehabilitation. Rhabdomyolysis Dehydration Lactic acidosis Rhabdomyolysis has worsened Continuation of IV hydration is necessary Follow CPK Monitor renal function Tachycardia Improved May be partly related to dehydration May be from missed beta lan treatments Diltiazem provided the ER Follow on telemetry Rehydrate the patient Gen. weakness Fall Continue physical therapy I anticipate this patient will need fdc facility at discharge Alzheimer's dementia Exacerbated Decrease narcotics Continue baseline therapy Follow clinically Supportive care Bilateral knee ulcerations Open hematomas versus pressure ulcers Wound care nurse consulted Follow clinically History of asthma No exacerbation Follow clinically for now History of diabetes mellitus type 2 May be diet controlled Follow blood sugars for now Insulin sliding scale Hypertension Continue atenolol Hypothyroidism Continue thyroid supplement DVT prophylaxis Lovenox started Slim Verdugo MD Nov 07, 2017 14:11
[2017-11-07] MEDS: ENOXAPARIN SODIUM 40 MG/0.4 ML SYRINGE SQ SCH (15:55)
[2017-11-07 16:00] VITALS: BP 98/49; PULSE 60; RESP 18; TEMP 98; O2SAT 95
[2017-11-07 20:00] VITALS: BP 89/50; PULSE 63; RESP 18; TEMP 98.5; O2SAT 96
[2017-11-07] MEDS: traZODone HCL 50 MG TAB PO SCH (20:10)
[2017-11-07 23:42] VITALS: PULSE 63
[2017-11-08] VITALS (8 sets, daily range): BP systolic 94–133; BP diastolic 47–71; PULSE 62–81; RESP 17–18; TEMP 97.9–99.5; O2SAT 96–97
[2017-11-08] MEDS: THYROID 30 MG TAB PO SCH (05:15)
[2017-11-08] MEDS: SODIUM CHLOR 0.9% 1000 ML INJ 1,000 ML IV SCH ×3 (05:15→20:04)
[2017-11-08 08:07] LABS: AUTOMATED NEUTROPHIL # 3.8 TH/MM3 (1.8-7.7); BASOPHIL # 0.1 TH/MM3 (0-0.2); BASOPHIL % 1.1 % (0.0-2.0); EOSINOPHIL # 0.1 TH/MM3 (0-0.4); EOSINOPHIL % 2.3 % (0.0-4.0); HEMATOCRIT 38.9 % (35.0-46.0); HEMO FLAGS DIFF FINAL; LYMPH % 24.3 % (9.0-44.0); LYMPHOCYTE # 1.4 TH/MM3 (1.0-4.8); MEAN CELL VOLUME 88.8 FL (80.0-100.0); MEAN CORPUSCULAR HEMOGLOBIN 30.6 PG (27.0-34.0); MEAN CORPUSCULAR HGB CONC 34.5 % (32.0-36.0); MONO % 7.4 % (0.0-8.0); NEUT % 64.9 % (16.0-70.0); PLATELET COUNT 225 TH/MM3 (150-450); RED BLOOD COUNT 4.38 MIL/MM3 (4.00-5.30); RED CELL DISTRIBUTION WIDTH 13.4 % (11.6-17.2); WHITE BLOOD COUNT 5.8 TH/MM3 (4.0-11.0)
[2017-11-08] MEDS: ATENOLOL 50 MG TAB PO SCH ×2 (08:13→20:05)
[2017-11-08] MEDS: MEMANTINE HCL 5 MG TAB PO SCH ×2 (08:13→20:04)
[2017-11-08] MEDS: traMADol HCL 50 MG TAB PO PRN ×2 (08:13→23:18)
[2017-11-08] MEDS: SODIUM CHLORIDE 0.9% FLUSH 10 ML FLUSH IV FLUSH SCH ×2 (08:14→20:05)
[2017-11-08] MEDS: COLLAGENASE OINT 30 GM TUBE TOPICAL SCH (08:15)
[2017-11-08] MEDS: SODIUM CHLORIDE 0.9% IRR BTL 1,000 ML IRRIGATION SCH (08:15)
[2017-11-08 08:47] LABS: ALT (GPT) 24 U/L (10-53); ANION GAP 8 MEQ/L (5-15); AST (GOT) 55 U/L (15-37); BICARBONATE 25.1 MEQ/L (21.0-32.0); BLOOD UREA NITROGEN 10 MG/DL (7-18); CHLORIDE 107 MEQ/L (98-107); GLOMERULAR FILTRATION RATE 92 ML/MIN (>89); POTASSIUM 3.2 MEQ/L (3.5-5.1); SODIUM (NA) 140 MEQ/L (136-145)
[2017-11-08 08:50] LABS: ALKALINE PHOSPHATASE 99 U/L (45-117); CREATINE KINASE 789 U/L (26-192); TOTAL BILIRUBIN ADULT 0.4 MG/DL (0.2-1.0)
[2017-11-08] MEDS ORDERED: POTASSIUM CHLORIDE 20 MEQ CONTROLLED RELEASE TAB PO ONE (13:45)
--- NOTE | 2017-11-08 14:23 | HHI.PR ---
Subjective Remarks Pt feeling better today. Sat on recliner but feels tired and would like to go back to bed. no nausea or vomiting. Objective Vitals Vital Signs Date Time Temp Pulse Resp B/P (MAP) Pulse Ox O2 Delivery O2 Flow Rate FiO2 11/08/17 12:00 99.3 67 17 96/47 (63) 97 11/08/17 08:00 99.5 68 17 133/63 (86) 96 11/08/17 08:00 71 11/08/17 04:28 97.9 66 18 111/51 (71) 97 11/08/17 04:07 68 11/08/17 00:20 98.2 62 18 94/52 (66) 96 11/07/17 23:42 63 11/07/17 20:00 98.5 63 18 89/50 (63) 96 11/07/17 16:00 98.0 60 18 98/49 (65) 95 I/O 11/07/17 11/07/17 11/07/17 11/08/17 11/08/17 11/08/17 07:00 15:00 23:00 07:00 15:00 23:00 Intake Total 360 ml 480 ml 240 ml 240 ml Balance 360 ml 480 ml 240 ml 240 ml Intake Oral 360 ml 480 ml 240 ml 240 ml # Voids 2 3 4 # Bowel Movements 0 0 0 Result Diagram: 11/08/1770511/08/17705 Imaging Last Impressions Pelvis X-Ray 11/05/17 0000 Signed Impressions: Service Date/Time: Sunday, November 05, 2017 14:36 - CONCLUSION: No acute fracture. Jonas Sterling MD Maxillofacial CT 11/05/17 0000 Signed Impressions: Service Date/Time: Sunday, November 05, 2017 14:41 - CONCLUSION: No acute disease. Tyrell Suazo MD Lumbar Spine CT 11/05/17 0000 Signed Impressions: Service Date/Time: Sunday, November 05, 2017 14:44 - CONCLUSION: 1. No fracture or subluxation. 2. Scoliosis and degenerative changes. Jonas Sterling MD Head CT 11/05/17 0000 Signed Impressions: Service Date/Time: Sunday, November 05, 2017 14:34 - CONCLUSION: 1. Cerebral atrophy and chronic ischemic small vessel arthropathy. 2. No acute intracranial abnormality. Jonas Sterling MD Chest X-Ray 11/05/17 0000 Signed Impressions: Service Date/Time: Sunday, November 05, 2017 14:34 - CONCLUSION: No acute disease. Jonas Sterling MD Cervical Spine CT 11/05/17 0000 Signed Impressions: Service Date/Time: Sunday, November 05, 2017 14:40 - CONCLUSION: No fracture or subluxation. Jonas Sterling MD Objective Remarks GENERAL:awake, sitting up on recliner NECK: Supple, trachea midline. EYES: EOMI CARDIOVASCULAR: Regular rate and rhythm without murmurs RESPIRATORY: Breath sounds equal bilaterally. No accessory muscle use. GASTROINTESTINAL: Abdomen soft, non-tender, nondistended. MUSCULOSKELETAL: dressing over her knees and left arm. NEURO: answers questions appropriately, moves extremities. A/P Problem List: (1) Rhabdomyolysis ICD Code: M62.82 - Rhabdomyolysis (2) Dehydration ICD Code: E86.0 - Dehydration (3) Lactic acidosis ICD Code: E87.2 - Acidosis (4) Leukocytosis ICD Code: D72.829 - Elevated white blood cell count, unspecified Assessment and Plan 77-year-old female admitted secondary to rhabdomyolysis with dehydration and weakness. Increased confusion today, related to Alzheimer's disease. rhabdomyolysis improving. Continue IV hydration and encourage po hydration. Continue to monitor CPK which is at 700 today. Planning for discharge to senior living facility versus inpatient rehabilitation. Rhabdomyolysis Dehydration Lactic acidosis Rhabdomyolysis improved today currently not on IVFs, encourage po hydration. Follow CPK Monitor renal function Tachycardia resolved Diltiazem provided the ER Follow on telemetry Gen. weakness Fall Continue physical therapy PT did evaluate the patient and recommends rehab and pt is agreeable to this Alzheimer's dementia Decrease narcotics Continue baseline therapy Follow clinically Supportive care Bilateral knee ulcerations Open hematomas versus pressure ulcers Wound care nurse consulted Follow clinically History of asthma No exacerbation Follow clinically for now History of diabetes mellitus type 2 May be diet controlled Follow blood sugars for now Insulin sliding scale Hypertension Continue atenolol Hypothyroidism Continue thyroid supplement DVT prophylaxis Lovenox started Discharge Planning recheck CPK tomorrow morning and continues to trend down, will d/c pt to rehab Arelis Aguilar MD Nov 08, 2017 14:23
[2017-11-08] MEDS: ENOXAPARIN SODIUM 40 MG/0.4 ML SYRINGE SQ SCH (14:34)
[2017-11-08] MEDS: traZODone HCL 50 MG TAB PO SCH (20:05)
[2017-11-09] VITALS (7 sets, daily range): BP systolic 93–140; BP diastolic 51–76; PULSE 70–82; RESP 16–18; TEMP 98–99.4; O2SAT 95–98
[2017-11-09] MEDS: SODIUM CHLOR 0.9% 1000 ML INJ 1,000 ML IV SCH ×2 (05:48→22:17)
[2017-11-09] MEDS: THYROID 30 MG TAB PO SCH (05:50)
[2017-11-09 08:06] LABS: CKMB 0.9 NG/ML (0.5-3.6)
[2017-11-09] MEDS: SODIUM CHLORIDE 0.9% IRR BTL 1,000 ML IRRIGATION SCH (09:00)
[2017-11-09] MEDS: MEMANTINE HCL 5 MG TAB PO SCH ×2 (09:09→21:00)
[2017-11-09] MEDS: ATENOLOL 50 MG TAB PO SCH ×2 (09:09→21:00)
[2017-11-09] MEDS: SODIUM CHLORIDE 0.9% FLUSH 10 ML FLUSH IV FLUSH SCH ×2 (09:09→21:00)
[2017-11-09] MEDS: COLLAGENASE OINT 30 GM TUBE TOPICAL SCH (09:11)
--- NOTE | 2017-11-09 13:38 | HHI.PR ---
Subjective Remarks Pt states that she "aches all over", no nausea or vomiting, states she forgot to order breakfast. discussed w RN, concerns about pt's wounds spoke w luncheonette manager, pt was seen by both her and Dr. Brand and pt is to f/u at the wound are center upon discharge Objective Vitals Vital Signs Date Time Temp Pulse Resp B/P (MAP) Pulse Ox O2 Delivery O2 Flow Rate FiO2 11/09/17 12:00 98.3 70 17 93/51 (65) 96 11/09/17 09:38 Room Air 11/09/17 09:15 Room Air 11/09/17 08:00 98.5 82 17 140/75 (96) 97 11/09/17 04:00 98.0 73 16 119/66 (83) 95 11/09/17 00:00 98.6 81 17 117/76 (90) 95 11/08/17 20:00 98.5 81 18 104/50 (68) 97 11/08/17 18:54 Room Air 11/08/17 16:10 99.0 80 18 107/71 (83) 97 11/08/17 16:00 99.0 80 17 107/71 (83) 96 I/O 11/08/17 11/08/17 11/08/17 11/09/17 11/09/17 11/09/17 07:00 15:00 23:00 07:00 15:00 23:00 Intake Total 240 ml 320 ml 799 ml 1596 ml Balance 240 ml 320 ml 799 ml 1596 ml Intake Oral 240 ml 320 ml 480 ml 240 ml IV Total 319 ml 1356 ml # Voids 4 1 2 3 # Bowel Movements 0 0 1 Result Diagram: 11/08/17 0706 11/08/17 0706 Imaging Last Impressions Pelvis X-Ray 11/05/17 0000 Signed Impressions: Service Date/Time: Sunday, November 05, 2017 14:36 - CONCLUSION: No acute fracture. Jonas Sterling MD Maxillofacial CT 11/05/17 0000 Signed Impressions: Service Date/Time: Sunday, November 05, 2017 14:41 - CONCLUSION: No acute disease. Tyrell Suazo MD Lumbar Spine CT 11/05/17 0000 Signed Impressions: Service Date/Time: Sunday, November 05, 2017 14:44 - CONCLUSION: 1. No fracture or subluxation. 2. Scoliosis and degenerative changes. Jonas Sterling MD Head CT 11/05/17 0000 Signed Impressions: Service Date/Time: Sunday, November 05, 2017 14:34 - CONCLUSION: 1. Cerebral atrophy and chronic ischemic small vessel arthropathy. 2. No acute intracranial abnormality. Jonas Sterling MD Chest X-Ray 11/05/17 0000 Signed Impressions: Service Date/Time: Sunday, November 05, 2017 14:34 - CONCLUSION: No acute disease. Jonas Sterling MD Cervical Spine CT 11/05/17 0000 Signed Impressions: Service Date/Time: Sunday, November 05, 2017 14:40 - CONCLUSION: No fracture or subluxation. Jonas Sterling MD Objective Remarks GENERAL:awake, laying in bed, appears comfortable NECK: Supple, trachea midline. EYES: EOMI CARDIOVASCULAR: Regular rate and rhythm without murmurs RESPIRATORY: Breath sounds equal bilaterally. No accessory muscle use. GASTROINTESTINAL: Abdomen soft, non-tender, nondistended. MUSCULOSKELETAL: dressing over her knees and left arm. NEURO: answers questions appropriately, moves extremities. A/P Problem List: (1) Rhabdomyolysis ICD Code: M62.82 - Rhabdomyolysis (2) Dehydration ICD Code: E86.0 - Dehydration (3) Lactic acidosis ICD Code: E87.2 - Acidosis (4) Leukocytosis ICD Code: D72.829 - Elevated white blood cell count, unspecified Assessment and Plan 77-year-old female admitted secondary to rhabdomyolysis with dehydration and weakness. Increased confusion today, related to Alzheimer's disease. rhabdomyolysis improving. Continue IV hydration and encourage po hydration. Continue to monitor CPK which is at 700 today. Planning for discharge to retirement facility versus inpatient rehabilitation. Rhabdomyolysis Dehydration Lactic acidosis Rhabdomyolysis improved today currently not on IVFs, encourage po hydration. Follow CPK Monitor renal function Wounds on bilateral knees luncheonette manager and Dr. Brand following. Patient needs out patient wound care follow up w Dr. Brand. Orders for santyl and dry cover dressing to bilateral knees to be done daily. Pt does have erythema surrounding wounds and since she did have bilateral knee replacements, I will start her on keflex to be continued upon discharge. Tachycardia resolved Diltiazem provided the ER Follow on telemetry Gen. weakness Fall Continue physical therapy PT did evaluate the patient and recommends rehab and pt is agreeable to this Alzheimer's dementia Decrease narcotics Continue baseline therapy Follow clinically Supportive care History of asthma No exacerbation Follow clinically for now History of diabetes mellitus type 2 May be diet controlled Follow blood sugars for now Insulin sliding scale Hypertension Continue atenolol Hypothyroidism Continue thyroid supplement DVT prophylaxis Lovenox started Discharge Planning recheck CPK tomorrow morning as pt continues to have "aches all over". Pt also started on keflex, monitor wounds. Anticipate d/c tomorrow. Arelis Aguilar MD Nov 09, 2017 13:38
[2017-11-09] MEDS: CEPHALEXIN MONOHYDRATE 500 MG CAP PO SCH ×2 (13:54→22:19)
[2017-11-09] MEDS: ENOXAPARIN SODIUM 40 MG/0.4 ML SYRINGE SQ SCH (15:44)
[2017-11-09] MEDS: traZODone HCL 50 MG TAB PO SCH (22:17)
[2017-11-10] VITALS: BP 106/50; PULSE 78; RESP 17; TEMP 97.8; O2SAT 97
[2017-11-10 05:05] LABS: BICARBONATE 26.9 MEQ/L (21.0-32.0); POTASSIUM 3.5 MEQ/L (3.5-5.1)
[2017-11-10] MEDS: CEPHALEXIN MONOHYDRATE 500 MG CAP PO SCH ×2 (05:29→12:41)
[2017-11-10] MEDS: THYROID 30 MG TAB PO SCH (05:29)
[2017-11-10] MEDS: SODIUM CHLOR 0.9% 1000 ML INJ 1,000 ML IV SCH ×2 (05:30→18:00)
[2017-11-10 07:50] VITALS: BP 140/69; PULSE 78; RESP 18; TEMP 98.9; O2SAT 96
[2017-11-10] MEDS: SODIUM CHLORIDE 0.9% FLUSH 10 ML FLUSH IV FLUSH SCH (08:51)
[2017-11-10] MEDS: SODIUM CHLORIDE 0.9% IRR BTL 1,000 ML IRRIGATION SCH (08:51)
[2017-11-10] MEDS: ATENOLOL 50 MG TAB PO SCH (08:51)
[2017-11-10] MEDS: MEMANTINE HCL 5 MG TAB PO SCH (08:51)
[2017-11-10] MEDS: COLLAGENASE OINT 30 GM TUBE TOPICAL SCH (08:52)
[2017-11-10 09:11] VITALS: PULSE 78
[2017-11-10 12:00] VITALS: BP 96/56; PULSE 72; RESP 18; TEMP 96; O2SAT 95
[2017-11-10 16:00] VITALS: BP 131/69; PULSE 75; RESP 18; TEMP 96.4; O2SAT 97
[2017-11-10] MEDS: ENOXAPARIN SODIUM 40 MG/0.4 ML SYRINGE SQ SCH (17:11)
[2017-11-10] MEDS ORDERED: ARMO90TA PO (18:06)
[2017-11-10] MEDS ORDERED: ROSU1TAB6 PO (18:06)
[2017-11-10] MEDS ORDERED: ATEN50TA PO (18:06)
[2017-11-10] MEDS ORDERED: ENOX40P SQ (18:06)
[2017-11-10] MEDS ORDERED: MEMA1TAB PO (18:06)
[2017-11-10] MEDS ORDERED: ACET300T49 PO (18:06)
[2017-11-10] MEDS ORDERED: TRAZ50TA12 PO (18:06)
--- NOTE | 2017-11-10 18:27 | HHI.DS ---
Discharge Summary Admission Date Nov 05, 2017 at 5:42 pm Discharge Date: Nov 10, 2017 Admitting Diagnosis Failure to thrive, fall (1) Rhabdomyolysis ICD Code: M62.82 - Rhabdomyolysis (2) Dehydration ICD Code: E86.0 - Dehydration (3) Lactic acidosis ICD Code: E87.2 - Acidosis (4) Leukocytosis ICD Code: D72.829 - Elevated white blood cell count, unspecified Procedures none Brief History - From Admission Mrs. Harry is a 77-year-old female. She has Alzheimer's at baseline and history is not 100% clear because of this. She was found on the floor in the bathroom by her friend. It appears she had been having diarrhea at some point and fell and was unable to get up. She's been in this position for approximately 3-5 days. On workup in the ER no fractures are found. She does report severe right hip pain and has a bad hip there to begin with but no fracture is seen. Rhabdomyolysis is present. She also has lactic acidosis. She has bilateral knee wounds/ulcers. Pain is controlled when seen. Dehydration is present. No other complaints at this time. Presently she is feeling much weaker than baseline and does not feel she can walk at this time. CBC/BMP: 11/08/17 0706 11/10/17 0350 Significant Findings Laboratory Tests Test 11/08/17 07:06 11/09/17 06:49 11/10/17 03:50 Total Protein 5.9 GM/DL (6.4-8.2) Albumin 2.6 GM/DL (3.4-5.0) Calcium Level 8.1 MG/DL (8.5-10.1) 7.6 MG/DL (8.5-10.1) Aspartate Amino Transf (AST/SGOT) 55 U/L (15-37) Potassium Level 3.2 MEQ/L (3.5-5.1) Total Creatine Kinase 789 U/L (26-192) 382 U/L (26-192) Blood Urea Nitrogen 4 MG/DL (7-18) PE at Discharge GENERAL:awake, laying in bed, appears comfortable NECK: Supple, trachea midline. EYES: EOMI CARDIOVASCULAR: Regular rate and rhythm without murmurs RESPIRATORY: Breath sounds equal bilaterally. No accessory muscle use. GASTROINTESTINAL: Abdomen soft, non-tender, nondistended. MUSCULOSKELETAL: dressing over her knees and left arm. NEURO: answers questions appropriately, moves extremities. Hospital Course Rhabdomyalisis resolved with IVF, patient feeling less pain but still weak. Pt Condition on Discharge: Fair Discharge Disposition: Discharge to SNF Discharge Time: > 30 minutes Discharge Instructions DIET: Follow Instructions for: Low Sodium Diet Activities you can perform: See Additionl Instruction Other Activity Instructions: High fall risk due to inactivity (failure to thrive). She will need focused therapy to regain her strength. Chester Verdugo MD Nov 10, 2017 6:27 pm
[2017-11-10] MEDS ORDERED: CEPH500C PO (18:59)
== END 2017-11-10 19:12 | DRG 558 ==
LOC: NEPC 13:29 → NEDA 17:42 → N06A 19:38
PROVIDERS: ADMIT Family Medicine; ATTEND Family Medicine
DX: M62.82 Rhabdomyolysis (principal); E87.2 Acidosis; G30.9 Alzheimer's disease, unspecified; L89.890 Pressure ulcer of other site, unstageable; F02.80 Dementia in other diseases classified elsewhere, unspecified severity, without behavioral disturbance, psychotic disturbance, mood disturbance, and anxiety; E11.9 Type 2 diabetes mellitus without complications; I10 Essential (primary) hypertension; D72.829 Elevated white blood cell count, unspecified; J45.909 Unspecified asthma, uncomplicated; M19.90 Unspecified osteoarthritis, unspecified site; R62.7 Adult failure to thrive; W19.XXXA Unspecified fall, initial encounter; Y92.009 Unspecified place in unspecified non-institutional (private) residence as the place of occurrence of the external cause; E86.0 Dehydration; E03.9 Hypothyroidism, unspecified; Z96.653 Presence of artificial knee joint, bilateral; Z90.710 Acquired absence of both cervix and uterus; Z82.49 Family history of ischemic heart disease and other diseases of the circulatory system; Z80.0 Family history of malignant neoplasm of digestive organs; R00.0 Tachycardia, unspecified; S51.012A Laceration without foreign body of left elbow, initial encounter; M25.551 Pain in right hip
CPT/HCPCS: 70450; 70486; 71010; 72125; 72131; 72170; 80048; 80053; 82550; 82552; 82948; 83605; 83735; 84100; 84484; 85025; 85610; 85730; 93005; 96360; J1650; J7030